=== PATIENT | male | born 1945 | race Caucasian/White ===

== ENCOUNTER 2021-06-01 19:10 | Emergency (ER) | payer MEDICARE ==
[~2021-06-01] VITALS: Ht 172.7 cm; Wt 98.0 kg
[~2021-06-01 19:10] MED LIST: AMLODIPINE BESYL5 MG PO; ESIDRIX25 MG PO; LEVOTHYROXINE88 MCG PO; LISINOPRIL20 MG PO; METOPROLOL TART50 MG PO
[2021-06-01 20:54] VITALS: BP 115/66
== END 2021-06-01 20:58 | disposition home or self-care (01) ==
LOC: ER 19:48
DX: M25.561 Pain in right knee (principal); R60.9 Edema, unspecified; I10 Essential (primary) hypertension; E03.9 Hypothyroidism, unspecified; K21.9 Gastro-esophageal reflux disease without esophagitis; Z85.46 Personal history of malignant neoplasm of prostate
CPT/HCPCS: 93970; 99282